=== PATIENT | female | born 2000 | race Caucasian/White ===

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

== ENCOUNTER 2019-02-15 05:10 | Outpatient (CLI) | payer OTHER ==
[2019-02-15] MEDS ORDERED: ONDANSETRON 4 MG/2 ML VIAL IVP STA (05:43)
[2019-02-15 05:46] VITALS: BP 110/59; PULSE 84; RESP 14; TEMP 98.1
[2019-02-15] MEDS: LACTATED RINGERS 1,000 ML IV SCH ×2 (05:55→06:21)
[2019-02-15 06:04] LABS: Basophils % (A) 0 %; Eosinophils # (A) 0.1 k/uL (0-0.7); Eosinophils % (A) 1 %; HCT 37.8 % (34.0-46.0); HGB 12.6 gm/dL (11.4-16.0); Lymphocytes # (A) 0.4 k/uL (1.0-4.8); Lymphocytes % (A) 2 %; MCH 29.9 pg (25.0-35.0); MCHC 33.4 g/dL (31.0-37.0); MCV 89.3 fL (80.0-100.0); Mean Platelet Volume 7.5; Monocytes # (A) 0.6 k/uL (0-1.0); Monocytes % (A) 3 %; Neutrophils # (A) 16.4 k/uL (1.3-7.7); Neutrophils % (A) 93 %; Platelet Count 231 k/uL (150-450); RBC 4.23 m/uL (3.80-5.40); RDW 14.3 % (11.5-15.5); WBC 17.5 k/uL (4.0-11.0)
[2019-02-15 06:14] LABS: Potassium 3.9 mmol/L (3.5-5.1)
--- NOTE | 2019-02-20 16:06 | P.MSEPDOC ---
Presenting Problems - Arrival Data Date of Arrival on Unit: 02/15/19 Time of Arrival on Unit: 05:12 Mode of Transport: Ambulatory - Complaint OB-Reason for Admission/Chief Complaint: Acute Nausea/Vomiting Comment: N/v that started at 0300 Medical History - Information : 2 Para: 1 Term: 1 : 0 Abortions: Spontaneous or Elective: 0 Number of Living Children: 1 - Gestational Age Gestational Age by BRODY (wks/days): 21 Weeks and 4 Days Review of Systems - Review of Systems Constitutional: No problems Breast: No problems ENT: No problems Cardiovascular: No problems Respiratory: No problems Gastrointestinal: No problems Genitourinary: No problems Musculoskeletal: No problems Neurological: No problems Skin: No problems Vital Signs - Temperature Temperature: 98.1 F Temperature Source: Temporal Artery Scan - Pulse Right Brachial Pulse Rate: 84 Pulse Assessment Method: Automatic Cuff - Respirations Respiratory Rate: 14 Oxygen Delivery Method: Room Air - Blood Pressure Right Arm Blood Pressure: 110/59 Blood Pressure Mean: 76 Blood Pressure Source: Automatic Cuff Medical Screen Scoring (Pre) - Cervical Exam Dilation: Exam Deferred Effacement: Exam Deferred - Uterine Contractions Frequency: > 5 minutes apart = 1 - Maternal Vital Signs Maternal Temperature: N/A Maternal Blood Pressure: N/A Signs of Preeclampsia: N/A Maternal Respirations: N/A - Maternal Trauma Maternal Trauma: N/A - Total Score - Baby A Total Score - Baby A: 1 - Total Score - Baby B Total Score - Baby B: 1 - Total Score - Baby C Total Score - Baby C: 1 - Level of Risk - Baby A Level of Risk - Baby A: Low (0-5) - Level of Risk - Baby B Level of Risk - Baby B: Low (0-5) - Level of Risk - Baby C Level of Risk - Baby C: Low (0-5) Physician Notification (Pre) - Physician Notified Physician Notified Date: 02/15/19 Physician Notified Time: 06:56 Spoke With: Darwin - Notification Comment Comment: Pt no longer daphne, denies nausea and states she is feeling better. Follow up 03/07/19 Disposition - Disposition OB Disposition: Discharge to home, Written follow up instructions reviewed Discharge Date: 02/15/19 Discharge Time: 06:58 I agree with the RN Medical Screening Exam: Yes Risk & Benefit of care provided described in d/c instruction: Yes Diagnosis: VOMITING OF , UNSPECIFIED
== END 2019-02-15 07:00 | disposition home or self-care (01) ==
LOC: FBPOP 05:10
PROVIDERS: ATTEND Obstetrics & Gynecology
DX: O21.2 Late vomiting of pregnancy (principal); Z3A.21 21 weeks gestation of pregnancy
CPT/HCPCS: 96360; 96375; 80051; 85025; G0463; J2405; 99214

== ENCOUNTER → 2019-03-15 | Outpatient (CLI) | payer OTHER ==
[2019-03-15 17:33] LABS: HCT 32.1 % (34.0-46.0); HGB 11.6 gm/dL (11.4-16.0); MCH 32.6 pg (25.0-35.0); MCHC 36.1 g/dL (31.0-37.0); MCV 90.3 fL (80.0-100.0); Mean Platelet Volume 7.4; Platelet Count 228 k/uL (150-450); RBC 3.55 m/uL (3.80-5.40); RDW 13.6 % (11.5-15.5); WBC 10.2 k/uL (4.0-11.0)
== END | disposition home or self-care (01) ==
LOC: LABWHC1 15:44
PROVIDERS: ATTEND Obstetrics & Gynecology
DX: Z34.82 Encounter for supervision of other normal pregnancy, second trimester (principal)
CPT/HCPCS: 36415; 82950; 85027

== ENCOUNTER 2019-06-27 06:15 | Inpatient (IN) | payer OTHER ==
[2019-06-27] MEDS ORDERED: CARBOPROST TROMETHAMINE 250 MCG/ML 1 ML AMP IM PRN (06:59)
[2019-06-27] MEDS ORDERED: OXYTOCIN 10 UNIT/ML 1 ML VIAL IM PRN (06:59)
[2019-06-27] MEDS ORDERED: TERBUTALINE 1 MG/ML VIAL SQ PRN (06:59)
[2019-06-27] MEDS ORDERED: LIDOCAINE 0.5% (PF) 5 MG/ML (50 ML SDV) SQ PRN (06:59)
[2019-06-27] MEDS ORDERED: METHYLERGONOVINE 0.2 MG/ML 1 ML AMP IM PRN (06:59)
[2019-06-27] MEDS: LACTATED RINGERS 1,000 ML IV SCH ×3 (07:10→16:26)
[2019-06-27] MEDS ORDERED: OXYTOCIN 30 UNITS/500 ML NS 30 UNIT in SALINE 1 500ML.BAG IV SCH (07:15)
[2019-06-27 07:26] LABS: Basophils # (A) 0.1 k/uL (0-0.2); Basophils % (A) 0 %; Eosinophils # (A) 0.2 k/uL (0-0.7); Eosinophils % (A) 1 %; HCT 32.7 % (34.0-46.0); HGB 10.8 gm/dL (11.4-16.0); Lymphocytes # (A) 1.5 k/uL (1.0-4.8); Lymphocytes % (A) 10 %; MCH 27.9 pg (25.0-35.0); MCV 84.6 fL (80.0-100.0); Mean Platelet Volume 6.4; Monocytes % (A) 7 %; Neutrophils # (A) 11.9 k/uL (1.3-7.7); Neutrophils % (A) 80 %; Platelet Count 301 k/uL (150-450); RBC 3.87 m/uL (3.80-5.40); RDW 15.2 % (11.5-15.5); WBC 14.9 k/uL (4.0-11.0)
[2019-06-27 07:48] VITALS: BMI 30.9
[2019-06-27] MEDS ORDERED: BUTORPHANOL 1 MG/ML 1 ML VIAL IV PRN (13:29)
[2019-06-27] MEDS ORDERED: fentaNYL (PF) 50 MCG/ML 5 ML AMP ONE (16:00)
[2019-06-27] MEDS ORDERED: SODIUM CHLORIDE 0.9% 100 ML BAG ONE (16:00)
[2019-06-27] MEDS ORDERED: ROPIVACAINE 5MG/ML 20ML VIAL ONE (16:00)
--- NOTE | 2019-06-27 16:39 | P.HPOB ---
History of Present Illness H&P Date: 06/27/19 Chief Complaint: Induction of LAbor 19-year-old presents at 40 weeks and 3 days for induction of labor. Her cervix was 2 cm dilated, 60% effaced, -2 station. She is daphne irregularly. heart tones 1:30 with moderate variability and reactive. Review of Systems All systems: negative Constitutional: Denies chills, Denies fever Eyes: denies blurred vision, denies pain Ears, nose, mouth and throat: Denies headache, Denies sore throat Cardiovascular: Denies chest pain, Denies shortness of breath Respiratory: Denies cough Gastrointestinal: Denies abdominal pain, Denies diarrhea, Denies nausea, Denies vomiting Genitourinary: Denies dysuria, Denies hematuria Musculoskeletal: Denies myalgias Integumentary: Denies pruritus, Denies rash Neurological: Denies numbness, Denies weakness Psychiatric: Denies anxiety, Denies depression Endocrine: Denies fatigue, Denies weight change Past Medical History Past Medical History: Asthma Additional Past Medical History / Comment(s): OB history: First was a vaginal delivery. This is her second . She has had care with nc since 13 weeks. O+, abs neg, Rub Imm, RPR NR, Hep B neg, HIV NR, toxo neg. She has been taking acyclovir for HSV. normal 1hr GTT. GBS neg. History of Any Multi-Drug Resistant Organisms: None Reported Past Surgical History: Adenoidectomy, Tonsillectomy Past Anesthesia/Blood Transfusion Reactions: No Reported Reaction Past Psychological History: Anxiety, Bipolar, Depression Smoking Status: Never smoker Past Alcohol Use History: Occasional Past Drug Use History: None Reported - Past Family History Mother Family Medical History: No Reported History Medications and Allergies Home Medications Medication Instructions Recorded Confirmed Type Acyclovir 400 mg PO TID 06/27/19 06/27/19 History Pnv 11/Iron Fum/Folic Acid/Om3 1 each PO DAILY 06/27/19 06/27/19 History [Virt-Dane Dha Softgel] Allergies Allergy/AdvReac Type Severity Reaction Status Date / Time No Known Allergies Allergy Verified 06/27/19 06:58 Exam Osteopathic Statement: *. No significant issues noted on an osteopathic st ructural exam other than those noted in the History and Physical/Consult. Vital Signs Temp Pulse Resp BP Pulse Ox 06/27/19 06:57 97.5 F L 86 18 126/59 97 Intake and Output 06/27/19 06/27/19 06/27/19 06:59 14:59 22:59 Other: # Voids 1 Weight 81.647 kg Heart: Regular rate and rhythm Lungs: Clear to auscultation bilaterally Abdomen: Soft, nontender Extremities: Negative Homans sign Results Result Diagrams: 06/27/19 07:10 Abnormal Lab Results - Last 24 Hours (Table) 06/27/19 Range/Units 07:10 WBC 14.9 H (4.0-11.0) k/uL Hgb 10.8 L (11.4-16.0) gm/dL Hct 32.7 L (34.0-46.0) % Neutrophils # 11.9 H (1.3-7.7) k/uL Assessment and Plan (1) Normal labor Current Visit: No Status: Acute Code(s): O80 - ENCOUNTER FOR FULL-TERM UNCOMPLICATED DELIVERY SNOMED Code(s): 60921323 Plan: 1. Induction of labor with amniotomy and Pitocin 2. Anticipate normal vaginal delivery
[2019-06-27] MEDS ORDERED: diphenhydrAMINE 50 MG/ML 1 ML VIAL IVP PRN ×2 (18:22)
[2019-06-27] MEDS ORDERED: WITCH HAZEL 1 EACH MED..PAD TOPICAL PRN (18:22)
[2019-06-27] MEDS ORDERED: BENZOCAINE/MENTHOL SPRAY 1 GM/SPRAY AEROSOL TOPICAL PRN (18:22)
[2019-06-27] MEDS ORDERED: LANOLIN CREAM 5 GM TUBE TOPICAL PRN (18:22)
[2019-06-27] MEDS ORDERED: SIMETHICONE 80 MG CHEWABLE PO PRN (18:22)
[2019-06-27] MEDS ORDERED: diphenhydrAMINE 25 MG CAP PO PRN (18:22)
[2019-06-27] MEDS ORDERED: HYDROCORTISONE 2.5% RECTAL CREAM 30 GM TUBE RECTAL PRN (18:22)
[2019-06-27] MEDS ORDERED: diphenhydrAMINE 50 MG CAP PO PRN (18:22)
[2019-06-27] MEDS ORDERED: ZOLPIDEM 5 MG TAB PO PRN (18:22)
--- NOTE | 2019-06-27 18:26 | P.PROBDLV ---
Vaginal Delivery Note - . Vaginal Delivery Note: 19-year-old presents at 40 weeks and 3 days for induction of labor. Her cervix was 2 cm dilated, 60% effaced, -2 station. She is daphne irregularly. heart tones 130 with moderate variability and reactive. Pitocin was started. Amniotomy was performed at 8:45 AM clear fluid noted. She progressed slowly throughout the day. She did get an epidural when she was about 6 cm and quite uncomfortable. Her cervix was completely dilated at 1733. She labored down for about 20 minutes and then pushed. She delivered a viable female infant over intact perineum under epidural anesthesia at 1810. Head delivered OA, anterior shoulder delivered gentle downward guidance followed by posterior shoulder and rest of body. Nose and mouth bulb suctioned, cord clamped and cut, infant placed on mother's abdomen. Apgars 9, 9, weight 8 lbs. 5 oz. Placenta delivered spontaneously, intact with three-vessel cord at 1812. Vagina, cervix, and perineum were inspected. Second-degree midline laceration was repaired with 3-0 Vicryl. Estimated blood loss 300 mL. Mother and baby in stable condition.
[2019-06-27] MEDS ORDERED: OXYTOCIN 20 UNITS/1000 ML NS 1,000 ML IV SCH (18:30)
[2019-06-27] MEDS: SENNOSIDES-DOCUSATE SODIUM 1 EACH TAB PO SCH (20:11)
[2019-06-27] MEDS: ACYCLOVIR 200 MG CAP PO SCH (21:36)
[2019-06-27] MEDS: IBUPROFEN 600 MG TAB PO PRN (21:45)
[2019-06-28] MEDS: ACETAMINOPHEN TAB 325 MG TAB PO PRN ×2 (04:23→17:21)
[2019-06-28 08:17] LABS: Basophils % (A) 0 %; Eosinophils # (A) 0.1 k/uL (0-0.7); Eosinophils % (A) 1 %; HCT 29.6 % (34.0-46.0); HGB 9.5 gm/dL (11.4-16.0); Hypochromasia Slight; Lymphocytes # (A) 1.8 k/uL (1.0-4.8); Lymphocytes % (A) 11 %; MCH 27.8 pg (25.0-35.0); MCHC 32.2 g/dL (31.0-37.0); MCV 86.3 fL (80.0-100.0); Mean Platelet Volume 6.3; Monocytes # (A) 1.1 k/uL (0-1.0); Monocytes % (A) 7 %; Neutrophils # (A) 12.4 k/uL (1.3-7.7); Neutrophils % (A) 79 %; Platelet Count 260 k/uL (150-450); RBC 3.43 m/uL (3.80-5.40); RDW 15.2 % (11.5-15.5); WBC 15.8 k/uL (4.0-11.0)
--- NOTE | 2019-06-28 08:28 | P.DS ---
Providers Date of admission: 06/27/19 06:40 Expected date of discharge: 06/28/19 Attending physician: Lila Granados Primary care physician: Stated None - Discharge Diagnosis(es) (1) Normal labor Current Visit: No Status: Resolved (2) Vaginal delivery Current Visit: No Status: Acute Hospital Course: Patient presented for induction of labor at 40 weeks and 3 days. She underwent a normal vaginal delivery. Her post course was uncomplicated. She denies nausea, vomiting, chest pain, shortness of breath or calf pain. Her lochia is decreasing. She'll be discharged home day #1 in stable condition to follow-up with me in 6 weeks. Plan - Discharge Summary New Discharge Prescriptions: New Ibuprofen [Motrin] 600 mg PO Q6HR PRN #30 tab PRN Reason: Mild Pain Or Fever >= 100.5 No Action Pnv 11/Iron Fum/Folic Acid/Om3 [Virt-Dane Dha Softgel] 1 each PO DAILY Acyclovir 400 mg PO TID Discharge Medication List Acyclovir 400 mg PO TID 06/27/19 [History] Pnv 11/Iron Fum/Folic Acid/Om3 [Virt-Dane Dha Softgel] 1 each PO DAILY 06/27/19 [History] Ibuprofen [Motrin] 600 mg PO Q6HR PRN #30 tab 06/28/19 [Rx] Follow up Appointment(s)/Referral(s): Lila Granados DO [Doctor of Osteopathic Medicine] - 6 Weeks Discharge Disposition: HOME SELF-CARE
[2019-06-28] MEDS: ACYCLOVIR 200 MG CAP PO SCH ×3 (09:04→22:48)
[2019-06-28] MEDS: SENNOSIDES-DOCUSATE SODIUM 1 EACH TAB PO SCH ×2 (09:05→22:48)
[2019-06-28] MEDS: PRENATAL VIT-IRON-FOLIC ACID 1 EACH CAP PO SCH (09:10)
[2019-06-28] MEDS: IBUPROFEN 600 MG TAB PO PRN ×2 (14:17→22:48)
[2019-06-28 21:12] VITALS: RESP 16
[2019-06-29] MEDS: IBUPROFEN 600 MG TAB PO PRN ×2 (08:59→15:27)
[2019-06-29] MEDS: ACYCLOVIR 200 MG CAP PO SCH (10:30)
[2019-06-29] MEDS: PRENATAL VIT-IRON-FOLIC ACID 1 EACH CAP PO SCH (10:30)
[2019-06-29] MEDS: SENNOSIDES-DOCUSATE SODIUM 1 EACH TAB PO SCH (10:50)
[2019-06-29 17:19] VITALS: BP 129/82; PULSE 84; TEMP 98.1
== END 2019-06-29 17:55 | disposition home or self-care (01) | DRG 807 ==
LOC: 4FBP 06:40
PROVIDERS: ADMIT Obstetrics & Gynecology; ATTEND Obstetrics & Gynecology
PROC: 10E0XZZ Delivery of Products of Conception, External Approach (ICD-10-PCS; principal; 2019-06-27)
PROC: 0KQM0ZZ Repair Perineum Muscle, Open Approach (ICD-10-PCS; 2019-06-27)
PROC: 00HU33Z Insertion of Infusion Device into Spinal Canal, Percutaneous Approach (ICD-10-PCS; 2019-06-27)
PROC: 3E0R3BZ Introduction of Anesthetic Agent into Spinal Canal, Percutaneous Approach (ICD-10-PCS; 2019-06-27)
PROC: 10907ZC Drainage of Amniotic Fluid, Therapeutic from Products of Conception, Via Natural or Artificial Opening (ICD-10-PCS; 2019-06-27)
PROC: 3E033VJ Introduction of Other Hormone into Peripheral Vein, Percutaneous Approach (ICD-10-PCS; 2019-06-27)
DX: O98.52 Other viral diseases complicating childbirth (principal); Z37.0 Single live birth; O99.344 Other mental disorders complicating childbirth; F31.9 Bipolar disorder, unspecified; F41.9 Anxiety disorder, unspecified; O99.52 Diseases of the respiratory system complicating childbirth; J45.909 Unspecified asthma, uncomplicated; O70.1 Second degree perineal laceration during delivery; Z3A.40 40 weeks gestation of pregnancy
CPT/HCPCS: 85025; 86850; 86900; 86901

== ENCOUNTER 2024-07-26 04:17 | Inpatient (IN) | payer OTHER ==
[2024-07-26] MEDS ORDERED: miSOPROStoL 200 MCG TAB PO PRN (04:42)
[2024-07-26] MEDS ORDERED: OXYTOCIN 10 UNIT/ML 1 ML VIAL IM PRN (04:42)
[2024-07-26] MEDS ORDERED: CARBOPROST TROMETHAMINE 250 MCG/ML 1 ML AMP IM PRN (04:42)
[2024-07-26] MEDS ORDERED: LIDOCAINE 0.5% (PF) 5 MG/ML (50 ML SDV) SQ PRN (04:42)
[2024-07-26] MEDS ORDERED: miSOPROStoL 200 MCG TAB RECTAL PRN (04:42)
[2024-07-26] MEDS ORDERED: TERBUTALINE 1 MG/ML VIAL SQ PRN (04:42)
[2024-07-26] MEDS ORDERED: TRANEXAMIC 1,000 MG/100ML-NACL 1,000 MG in EMPTY BAG 1 BAG IV PRN (04:42)
[2024-07-26] MEDS ORDERED: METHYLERGONOVINE 0.2 MG/ML 1 ML AMP IM PRN (04:42)
[2024-07-26] MEDS ORDERED: OXYTOCIN 30 UNITS/500 ML NS 30 UNIT in SALINE 1 500ML.BAG IV SCH (04:45)
[2024-07-26] MEDS: LACTATED RINGERS 1,000 ML IV SCH (05:36)
[2024-07-26 06:04] LABS: Basophils % (A) 0 %; Eosinophils # (A) 0.2 k/uL (0-0.7); Eosinophils % (A) 2 %; HGB 10.5 gm/dL (11.4-16.0); Hypochromasia Slight; Lymphocytes # (A) 2.3 k/uL (1.0-4.8); Lymphocytes % (A) 25 %; MCH 27.6 pg (25.0-35.0); MCHC 33.8 g/dL (31.0-37.0); MCV 81.4 fL (80.0-100.0); Monocytes # (A) 0.9 k/uL (0-1.0); Monocytes % (A) 9 %; Neutrophils # (A) 5.6 k/uL (1.3-7.7); Neutrophils % (A) 60 %; Platelet Count 431 k/uL (150-450); RBC 3.81 m/uL (3.80-5.40); RDW 15.8 % (11.5-15.5); WBC 9.3 k/uL (3.8-10.6)
[2024-07-26 06:15] LABS: Amphetamine Screen,Urine Not Detected (NotDetected); Barbiturate Screen,Urine Not Detected (NotDetected); Benzodiazepines Screen,Urine Not Detected (NotDetected); Cocaine Screen,Urine Not Detected (NotDetected); Methadone Screen, Urine Not Detected (NotDetected); Opiate Screen,Urine Not Detected (NotDetected); Oxycodone Screen, Urine Not Detected (NotDetected); Phencyclidine Screen,Urine Not Detected (NotDetected); Tricyclic Antidepressant,Urine Not Detected (NotDetected); Urn Cannabinoid Scrn Detected (NotDetected)
[2024-07-26] MEDS: NALBUPHINE 10 MG/ML (10 ML MDV) IV PRN (06:54)
--- NOTE | 2024-07-26 06:54 | P.HPOB ---
History of Present Illness H&P Date: 07/26/24 Chief Complaint: SROM 4-year-old presents at 39 weeks gestation with spontaneous rupture of membranes at 4:30 AM. She is daphne irregularly. heart tones are category 1. Her cervix is 4 Centimeters dilated, 70% effaced, -2 station. Review of Systems All systems: negative Constitutional: Denies chills, Denies fever Eyes: denies blurred vision, denies pain Ears, nose, mouth and throat: Denies headache, Denies sore throat Cardiovascular: Denies chest pain, Denies shortness of breath Respiratory: Denies cough Gastrointestinal: Denies abdominal pain, Denies diarrhea, Denies nausea, Denies vomiting Genitourinary: Denies dysuria, Denies hematuria Musculoskeletal: Denies myalgias Integumentary: Denies pruritus, Denies rash Neurological: Denies numbness, Denies weakness Psychiatric: Denies anxiety, Denies depression Endocrine: Denies fatigue, Denies weight change Past Medical History Past Medical History: Asthma Additional Past Medical History / Comment(s): OB history: She has had 2 vaginal deliveries. This is her Third . She has care throughout her . O+, abs neg, Rub Imm, RPR NR, Hep B neg, HIV NR, toxo neg. She has been taking acyclovir for HSV. normal 1hr GTT. GBS neg. History of Any Multi-Drug Resistant Organisms: None Reported Past Surgical History: Adenoidectomy, Tonsillectomy Past Anesthesia/Blood Transfusion Reactions: No Reported Reaction Past Psychological History: Anxiety, Bipolar, Depression Smoking Status: Never smoker Past Alcohol Use History: Occasional Past Drug Use History: None Reported - Past Family History Mother Family Medical History: No Reported History Medications and Allergies Home Medications Medication Instructions Recorded Confirmed Type Acyclovir 400 mg PO TID 06/27/19 07/26/24 History Pnv 11/Iron Fum/Folic Acid/Om3 1 each PO DAILY 06/27/19 07/26/24 History [Virt-Dane Dha Softgel] Allergies Allergy/AdvReac Type Severity Reaction Status Date / Time No Known Allergies Allergy Verified 07/26/24 04:23 Exam Osteopathic Statement: *. No significant issues noted on an osteopathic structural exam other than those noted in the History and Physical/Consult. Vital Signs Temp Pulse Resp BP Pulse Ox 07/26/24 04:56 97.8 F 72 16 109/77 07/26/24 04:23 98.4 F 72 16 109/77 97 Intake and Output 07/25/24 07/25/24 07/26/24 14:59 22:59 06:59 Other: # Voids 2 Weight 72.121 kg Heart: Regular rate and rhythm Lungs: Clear to auscultation bilaterally Abdomen: Soft, nontender Extremities: Negative Homans sign Results Result Diagrams: 07/26/24 04:40 Abnormal Lab Results - Last 24 Hours (Table) 07/26/24 07/26/24 Range/Units 04:40 05:41 Hgb 10.5 L (11.4-16.0) gm/dL Hct 31.0 L (34.0-46.0) % RDW 15.8 H (11.5-15.5) % U Marijuana (THC) Screen Detected H (NotDetected) Assessment and Plan (1) SROM (spontaneous rupture of membranes) Current Visit: Yes Status: Acute Code(s): MLL4009 - SNOMED Code(s): 570886584 (2) Normal labor Current Visit: No Status: Acute Code(s): O80 - ENCOUNTER FOR FULL-TERM UNCOMPLICATED DELIVERY SNOMED Code(s): 65732076 Plan: 1. Expectant management 2. Anticipate normal vaginal delivery
[2024-07-26] MEDS ORDERED: SODIUM CHLORIDE 0.9% 250 ML BAG ONE (07:35)
[2024-07-26] MEDS ORDERED: fentaNYL (PF) 50 MCG/ML 5 ML AMP ONE (07:35)
[2024-07-26] MEDS ORDERED: ROPIVACAINE 5 MG/ML 30 ML VIAL ONE (07:35)
[2024-07-26] MEDS ORDERED: diphenhydrAMINE 50 MG/ML 1 ML VIAL IVP PRN ×2 (10:04)
[2024-07-26] MEDS ORDERED: diphenhydrAMINE 50 MG CAP PO PRN (10:04)
[2024-07-26] MEDS ORDERED: BENZOCAINE/MENTHOL SPRAY 1 GM/SPRAY AEROSOL TOPICAL PRN (10:04)
[2024-07-26] MEDS ORDERED: LANOLIN CREAM 1 GM TUBE TOPICAL PRN (10:04)
[2024-07-26] MEDS ORDERED: SIMETHICONE 80 MG CHEWABLE PO PRN (10:04)
[2024-07-26] MEDS ORDERED: diphenhydrAMINE 25 MG CAP PO PRN (10:04)
[2024-07-26] MEDS ORDERED: ZOLPIDEM 5 MG TAB PO PRN (10:04)
[2024-07-26] MEDS ORDERED: HYDROCORTISONE 2.5% RECTAL CREAM 30 GM TUBE RECTAL PRN (10:04)
[2024-07-26] MEDS ORDERED: ACETAMINOPHEN TAB 500 MG TAB PO PRN (10:07)
[2024-07-26] MEDS: ROPIVACAINE 225 MG, fentaNYL (PF). 450 MCG in SODIUM CHLORIDE 0.9% 171 ML EPIDURAL ONE (13:22)
[2024-07-26 20:43] VITALS: RESP 16
[2024-07-26] MEDS: SENNOSIDES-DOCUSATE SODIUM 1 EACH TAB PO SCH (21:46)
[2024-07-27 05:08] LABS: Basophils % (A) 0 %; Eosinophils # (A) 0.2 k/uL (0-0.7); Eosinophils % (A) 2 %; HCT 29.7 % (34.0-46.0); HGB 9.5 gm/dL (11.4-16.0); Hypochromasia Slight; Lymphocytes # (A) 2.6 k/uL (1.0-4.8); Lymphocytes % (A) 23 %; MCH 25.9 pg (25.0-35.0); MCV 80.9 fL (80.0-100.0); Mean Platelet Volume 7.7; Monocytes # (A) 0.9 k/uL (0-1.0); Monocytes % (A) 7 %; Neutrophils # (A) 7.4 k/uL (1.3-7.7); Neutrophils % (A) 64 %; Platelet Count 364 k/uL (150-450); Poikilocytosis Slight; RBC 3.67 m/uL (3.80-5.40); RDW 15.7 % (11.5-15.5); WBC 11.5 k/uL (3.8-10.6)
--- NOTE | 2024-07-27 07:46 | P.PROBDLV ---
Vaginal Delivery Note - . Vaginal Delivery Note: 24-year-old presents at 39 weeks gestation with spontaneous rupture of membranes at 4:30 AM. She is daphne irregularly. heart tones are category 1. Her cervix is 4 Centimeters dilated, 70% effaced, -2 station. On examination she did have a fore bag and that was broken. Patient progressed over time and was completely dilated at 9:37 AM. She pushed, delivered a viable female over intact perineum under epidural anesthesia at 9:57 AM. Head delivered OA, tears shoulder delivered gentle downward guidance of the posterior shoulder and rest of body. Nose and mouth bulb suctioned, cord clamped and cut, placed on mother's abdomen. Apgars 9, 9, weight 6 lbs. 9 oz. Placenta delivered spontaneously, intact with three-vessel cord at 10 AM. Vagina, cervix, perineum inspected. No lacerations noted. Estimated blood loss 200 mL. Mother and baby in stable condition.
[2024-07-27 07:57] VITALS: TEMP 98
--- NOTE | 2024-07-27 08:04 | P.DS ---
Providers Date of admission: 07/26/24 04:50 Expected date of discharge: 07/27/24 Attending physician: Lila Granados Primary care physician: Stated None - Discharge Diagnosis(es) (1) SROM (spontaneous rupture of membranes) Current Visit: Yes Status: Resolved (2) Normal labor Current Visit: No Status: Resolved (3) Status post normal vaginal delivery Current Visit: Yes Status: Acute Hospital Course: Patient presented with SROM. She underwent a normal vaginal delivery. PP course has been uneventful. She denies N/V/F/C/CP, SOB or calf pain. Pt will be discharged home PPD #1 in stable condition to follow up with me in 6 weeks. Plan - Discharge Summary New Discharge Prescriptions: New Ibuprofen [Motrin] 800 mg PO Q8HR PRN #30 tab PRN Reason: Analgesia No Action Pnv 11/Iron Fum/Folic Acid/Om3 [Virt-Dane Dha Softgel] 1 each PO DAILY Acyclovir 400 mg PO TID Discharge Medication List Acyclovir 400 mg PO TID 06/27/19 [History] Pnv 11/Iron Fum/Folic Acid/Om3 [Virt-Dane Dha Softgel] 1 each PO DAILY 06/27/19 [History] Ibuprofen [Motrin] 800 mg PO Q8HR PRN #30 tab 07/27/24 [Rx] Follow up Appointment(s)/Referral(s): Lila Granados DO [Doctor of Osteopathic Medicine] - 09/14/24 2:00 pm Discharge Disposition: HOME SELF-CARE
[2024-07-27] MEDS: IBUPROFEN 800 MG TAB PO PRN (10:47)
[2024-07-27 12:25] VITALS: BP 97/52; PULSE 61
== END 2024-07-27 13:20 | disposition home or self-care (01) | DRG 560 ==
LOC: FBPOP 04:17 → 4FBP 04:50
PROVIDERS: ADMIT Obstetrics & Gynecology; ATTEND Obstetrics & Gynecology
PROC: 10E0XZZ Delivery of Products of Conception, External Approach (ICD-10-PCS; principal; 2024-07-26)
DX: O42.02 Full-term premature rupture of membranes, onset of labor within 24 hours of rupture (principal); Z3A.39 39 weeks gestation of pregnancy; Z37.0 Single live birth; O99.52 Diseases of the respiratory system complicating childbirth; O99.344 Other mental disorders complicating childbirth; J45.909 Unspecified asthma, uncomplicated; A60.00 Herpesviral infection of urogenital system, unspecified; F41.9 Anxiety disorder, unspecified; F31.9 Bipolar disorder, unspecified; O98.52 Other viral diseases complicating childbirth
CPT/HCPCS: 59025; 80306; 84112; 85025; 86850; 86900; 86901; 99213